=== PATIENT | female | born 1940 | race Caucasian/White ===

== ENCOUNTER 2022-07-07 10:13 | Inpatient (IN) ==
[2022-07-07] MEDS ORDERED: IOPAMIDOL 100 ML BOTTLE IV ONE (10:14)
[2022-07-07] MEDS ORDERED: LACTATED RINGERS 1,000 ML IV ONE (10:26)
[2022-07-07 10:34] LABS: POC Calcium, Ionized 1.16 (1.16-1.32); POC Creatinine 1.6 (0.6-1.2); POC Potassium 4.2 (3.3-5.1)
--- NOTE | 2022-07-07 10:43 | Emergency Department Note ---
HPI General Chief complaint: Nausea/Vomiting/Diarrhea Stated complaint: cold/flu sx Time Seen by Provider: 07/07/22 10:26 Source: patient Mode of arrival: ambulatory Limitations: no limitations History of Present Illness HPI Narrative: Narrative: Patient is an 82-year-old female with a history of hypertension and h yperlipidemia who presents to the emergency department due to nausea, vomiting, and lightheadedness. She states that the symptoms developed last night at about midnight. She states that her nausea and vomiting continued and was frequent. She also endorses frequent diarrhea. She states that this morning she began to have lightheadedness. She states that she almost lost consciousness and fell on the way to the bathroom, and at that time decided that she needed to come to the emergency department. She does endorse some chills last night. She denies any other symptoms. Related Data Home Medications Medication Instructions Recorded Confirmed multivitamin 1 tab PO QDAY 05/02/15 07/07/22 Calcium 600 mg PO BID 11/06/15 07/07/22 vitamin A-vit C-vit E-zinc-Cu 2 tab PO BID 11/07/16 07/07/22 tablet simvastatin 40 mg tablet 40 mg PO HS 07/10/21 07/07/22 amlodipine 5 mg tablet 5 mg PO DAILY 04/01/22 07/07/22 lysine 500 mg tablet (L-Lysine) 500 mg PO QDAY 07/07/22 07/07/22 hydrochlorothiazide 12.5 mg PO DAILY 07/08/22 07/08/22 valsartan 160 mg PO DAILY 07/08/22 07/08/22 Previous Rx's Medication Instructions Recorded metoprolol succinate 50 mg 50 mg PO QDAY #365 tabs 11/12/17 tablet,extended release 24 hr loperamide 2 mg capsule 2 mg PO PRN PRN Diarrhea #20 caps 07/09/22 ondansetron 4 mg disintegrating 4 mg PO Q8H PRN nausea and 07/09/22 tablet vomiting #20 tabs Allergies Allergy/AdvReac Type Severity Reaction Status Date / Time Sulfa (Sulfonamide Allergy Intermediate Hives Verified 07/07/22 15:57 Antibiotics) Review of Systems ROS ROS Narrative: Narrative: Constitutional: Reports chills; Denies fever or weakness Eyes: Denies eye pain or vision change ENT ED: Denies throat pain or rhinorrhea Cardiovascular: Denies chest pain, dyspnea on exertion, orthopnea or edema Respiratory: Denies shortness of breath or cough Gastrointestinal: Reports nausea, vomiting and diarrhea; Denies abdominal pain, constipation, hematochezia or melena Musculoskeletal: Denies back pain or myalgia Integumentary: Denies rash or lesions Neurological: Denies headache, weakness, numbness, confusion, abnormal gait or dizziness Endocrine: Denies fatigue or polyuria PFSH Narrative Patient History Narrative: Narrative: Medical/Surgical/Family History All Active Problems (Updated 07/11/22 @ 12:35 by Tha Qureshi MD) Sepsis secondary to UTI (Acute) Stage 1 acute kidney injury (Acute) Urinary tract infection (Acute) Enterocolitis (Acute) Clinical sepsis (Acute) Knee pain, left (Acute) URI (upper respiratory infection) (Acute) Encounter for Health Maintenance Examination in Adult (Acute) Osteopenia (Chronic) Migraine (Chronic) Hypertension, essential (Chronic) Hyperlipidemia (Chronic) Esophageal reflux (Chronic) Colonic benign neoplasm (Chronic) Medical History (Updated 07/11/22 @ 12:35 by Tha Qureshi MD) Colonic benign neoplasm history of colon polyps, tubular adenoma 2016 Dyspnea on exertion Encounter for removal of sutures Esophageal reflux Hematuria, unspecified microscopic hematuria, longstanding Hemorrhoids, internal Hyperlipidemia Hypertension, essential Laceration Migraine Osteopenia Osteopenia disorder of bone/cartilage, unspec. Pain in or around eye Dry eye syndrome/tear film insuffiiency/unspec Urinary tract infection Surgical History (Updated 07/06/20 @ 10:53 by [employer] [place]) History of bilateral breast biopsy 2001-Dr. Greenwood, benign History of cataract surgery (03/19/17) FEMTO-Assisted Procedure - Cataract right eye History of surgery 1970-Kidney Stones needed surgically removed Hx of basal cell carcinoma excision 2012 Hx of colonoscopy 2005 Hx of hysterectomy Hx of oophorectomy Status post Mohs surgery (04/13/13) Basal Cell carcinoma Family History Father Malignant neoplasm of stomach Brother Pituitary adenoma, Onset Age: 57 Mother Essential hypertension Grandmother Diabetes mellitus no specified side, but lived to be in her 90's Social History Smoking Status: Never smoker Alcohol Intake Frequency: holiday/special occasion only Exam Narrative Narrative: Narrative: General Limitations: no limitations General appearance: Present alert and in no apparent distress; Absent anxious, appears intoxicated or sleepy Head Head: Present atraumatic and normocephalic Eye Eye: Present EOMI; Absent scleral icterus or nystagmus ENT ENT: Present mucous membranes moist; Absent nasal congestion Neck Neck: Present full ROM; Absent tenderness Chest Chest: Present normal inspection and symmetric chest wall rise; Absent tenderness Respiratory Respiratory: Present normal lung sounds bilaterally; Absent respiratory distress or accessory muscle use Cardiovascular Cardiovascular: Present regular rate, normal rhythm and normal heart sounds Adbominal Abdominal: Present soft, tenderness, guarding and normal bowel sounds; Absent distention, rebound or rigidity Extremities Extremities: Present normal inspection and full ROM; Absent tenderness Back Back: Present normal inspection and full ROM; Absent tenderness Neurological Neurological: Present alert and oriented X3 Psychiatric Psychiatric: Present normal affect and normal mood Skin Skin: Present warm (WNL), dry and normal color Course Vital Signs Vital signs: Vital Signs Temperature 97.4 F 07/07/22 10:15 Pulse Rate 120 H 07/07/22 10:15 Respiratory Rate 20 07/07/22 10:15 Blood Pressure 82/55 07/07/22 10:15 Pulse Oximetry (%) 93 07/07/22 10:15 Oxygen Delivery Method Room Air 07/07/22 10:15 Temperature 98.5 F 07/09/22 16:20 Pulse Rate 68 07/09/22 16:20 Respiratory Rate 18 07/09/22 16:20 Blood Pressure 135/77 07/09/22 16:20 Pulse Oximetry (%) 99 07/09/22 16:20 Oxygen Delivery Method Room Air 07/09/22 16:20 [facility] Narrative Medical decision making narrative: AlsoNarrative: Patient is an 82-year-old female with a history of hypertension and hyperlipidem ia who presents to the emergency department due to nausea, vomiting, and lightheadedness. Differential diagnoses include small bowel obstruction, influenza, COVID, UTI including pyelonephritis, although she does not have flank pain or tenderness that would be consistent with this. Differential also includes pancreatitis and hepatitis. Patient has a leukocytosis of 14.4. Due to this patient does meet SIRS criteria. Blood cultures and T4 are being obtained. Patient's lactate is 2.8. Patient does have findings consistent with a urinary tract infection. She has received antibiotics. I have spoken to Dr. Law who has agreed to see and evaluate patient for admission. Lab Data 07/07/22 10:34 Labs: Lab Results 07/07/22 07/07/22 07/07/22 Range/Units 10:29 10:34 10:35 WBC 14.4 H (4.5-11.0) K/mcL RBC 4.92 (3.59-5.38) M/mcL Hgb 14.8 (11.2-15.7) g/dL Hct 45.3 H (34.1-44.9) % POC Hct 47.0 (36-48) MCV 92.1 (80.0-100.0) fL MCH 30.1 (26.0-34.0) pg MCHC 32.7 (31.0-36.0) g/dL RDW 13.1 (11.5-14.5) % Plt Count 320 (140-440) K/mcL MPV 9.7 (8.8-12.5) fL Immature Gran % (Auto) 0.3 (0.0-0.5) % Neut % (Auto) 92.0 H (38.0-78.0) % Lymph % (Auto) 3.7 L (15.5-49.0) % [place] % (Auto) 3.6 (1.0-12.0) % Eos % (Auto) 0.1 (0.0-7.0) % Baso % (Auto) 0.3 (0.0-2.0) % Lymph # (Auto) 0.54 L (1.50-4.80) K/mcL [place] # (Auto) 0.52 (0.10-0.90) K/mcL Eos # (Auto) 0.02 (0.00-0.70) K/mcL Baso # (Auto) 0.04 (0.00-0.30) K/mcL Immature Gran # 0.05 (0.00-0.05) K/mcl Absolute Neutrophils 13.25 H (1.80-8.00) K/mcL POC VBG pH (7.32-7.42) POC VBG pCO2 at Temp (41-51) POC VBG pO2 (25-40) POC VBG HCO3 (24-28) POC VBG Total CO2 (25-29) POC Venous O2 Sat (40-70) POC VBG Base Excess (-2-2) VBG Lactic Acid (0.5-2) POC Sodium 139 (133-145) POC Potassium 4.2 (3.3-5.1) POC Chloride 103 (96-108) POC Total CO2 22.0 (22-30) POC BUN 39 H (6-20) POC Creatinine 1.6 H (0.6-1.2) POC Glucose 146 H (70-105) POC WB Ioniz Calcium 1.16 (1.16-1.32) Procalcitonin 0.83 H (<0.10) ng/mL Urine Color Urine Appearance (Clear) Urine pH (5.0-9.0) Ur Specific [place] (1.000-1.035) Urine Protein (Negative) mg/dL Urine Glucose (UA) (Negative) mg/dL Urine Ketones (Negative) mg/dL Urine Occult Blood (Negative) mg/dL Urine Nitrate (Negative) Urine Bilirubin (Negative) mg/dL Urine Urobilinogen mg/dL Ur Leukocyte Esterase (Negative) /uL Urine RBC (0-3) /hpf Urine WBC (0-4) /hpf Ur Squamous Epith Cells (0-4) /hpf Urine Bacteria (0) /hpf Hyaline Casts (0-2) /lph Urine Mucus (None) /hpf Ur Culture Indicated? 07/07/22 07/07/22 07/07/22 Range/Units 11:17 12:20 13:00 WBC (4.5-11.0) K/mcL RBC (3.59-5.38) M/mcL Hgb (11.2-15.7) g/dL Hct (34.1-44.9) % POC Hct (36-48) MCV (80.0-100.0) fL MCH (26.0-34.0) pg MCHC (31.0-36.0) g/dL RDW (11.5-14.5) % Plt Count (140-440) K/mcL MPV (8.8-12.5) fL Immature Gran % (Auto) (0.0-0.5) % Neut % (Auto) (38.0-78.0) % Lymph % (Auto) (15.5-49.0) % [place] % (Auto) (1.0-12.0) % Eos % (Auto) (0.0-7.0) % Baso % (Auto) (0.0-2.0) % Lymph # (Auto) (1.50-4.80) K/mcL [place] # (Auto) (0.10-0.90) K/mcL Eos # (Auto) (0.00-0.70) K/mcL Baso # (Auto) (0.00-0.30) K/mcL Immature Gran # (0.00-0.05) K/mcl Absolute Neutrophils (1.80-8.00) K/mcL POC VBG pH 7.45 H 7.35 (7.32-7.42) POC VBG pCO2 at Temp 27.6 L 41.3 (41-51) POC VBG pO2 26 19 L (25-40) POC VBG HCO3 19.1 L 22.7 L (24-28) POC VBG Total CO2 20.0 L 24.0 L (25-29) POC Venous O2 Sat 52.0 27.0 L (40-70) POC VBG Base Excess -5.0 L -3.0 L (-2-2) VBG Lactic Acid 2.8 H 1.2 (0.5-2) POC Sodium (133-145) POC Potassium (3.3-5.1) POC Chloride (96-108) POC Total CO2 (22-30) POC BUN (6-20) POC Creatinine (0.6-1.2) POC Glucose (70-105) POC WB Ioniz Calcium (1.16-1.32) Procalcitonin (<0.10) ng/mL Urine Color Yellow Urine Appearance Cloudy A (Clear) Urine pH 5.0 (5.0-9.0) Ur Specific [place] 1.015 (1.000-1.035) Urine Protein 30 A (Negative) mg/dL Urine Glucose (UA) Negative (Negative) mg/dL Urine Ketones Negative (Negative) mg/dL Urine Occult Blood Negative (Negative) mg/dL Urine Nitrate Negative (Negative) Urine Bilirubin Negative (Negative) mg/dL Urine Urobilinogen Negative mg/dL Ur Leukocyte Esterase 500 A (Negative) /uL Urine RBC 10 H (0-3) /hpf Urine WBC 20 H (0-4) /hpf Ur Squamous Epith Cells 14 H (0-4) /hpf Urine Bacteria Many A (0) /hpf Hyaline Casts 21 H (0-2) /lph Urine Mucus Many A (None) /hpf Ur Culture Indicated? No ED POC Tests ED POC Tests: JONH - Influenza A Negative JONH - Influenza B Negative JONH - SARS Antigen Negative Discharge Plan Patient/Caregiver Discharge Instructions Pt seen by SOCIAL MEDIA SPECIALIST/PA only: No Clinical Impression: Sepsis secondary to UTI Activity: increase activity as tolerated Patient Disposition: Xfer As Inpt ([facility]) Condition: Good Discharge Date/Time: 07/07/22 15:35 Discharge Location: [facility]
[2022-07-07 11:01] LABS: Basophils # (Auto) 0.04 K/mcL (0.00-0.30); Basophils % (Auto) 0.3 % (0.0-2.0); Eosinophils # (Auto) 0.02 K/mcL (0.00-0.70); Eosinophils % (Auto) 0.1 % (0.0-7.0); Hematocrit 45.3 % (34.1-44.9); Hemoglobin 14.8 g/dL (11.2-15.7); Lymphocytes # (Auto) 0.54 K/mcL (1.50-4.80); Lymphocytes % (Auto) 3.7 % (15.5-49.0); Mean Cell Volume 92.1 fL (80.0-100.0); Mean Corpuscular HGB Conc 32.7 g/dL (31.0-36.0); Mean Platelet Volume 9.7 fL (8.8-12.5); Monocytes # (Auto) 0.52 K/mcL (0.10-0.90); Monocytes % (Auto) 3.6 % (1.0-12.0); Platelet Count 320 K/mcL (140-440); RBC 4.92 M/mcL (3.59-5.38); Red Cell Distribution Width 13.1 % (11.5-14.5); WBC 14.4 K/mcL (4.5-11.0)
[2022-07-07] MEDS ORDERED: cefTRIAXone 1 GM VIAL IV ONE (11:30)
[2022-07-07] MEDS ORDERED: 0.9 % SODIUM CHLORIDE 1,000 ML IV ONE (11:36)
[2022-07-07 13:47] LABS: Appearance,Urine CLOUDY (Clear); Bacteria,Urine MANY /hpf (0); Bilirubin,Urine Negative (Negative); Color,Urine Yellow; Culture Indicated,Urine No; Glucose,Urine (UA) Negative (Negative); Ketones,Urine Negative (Negative); Leukocyte Esterase,Urine 500 /uL (Negative); Mucus,Urine MANY /hpf; Nitrate,Urine Negative (Negative); Protein,Urine 30 mg/dL (Negative); Specific Gravity,Urine 1.015 (1.000-1.035); Urine Blood Negative (Negative); Urine Hyaline Cast 21 /lph (0-2); Urine RBC 10 /hpf (0-3); Urine Squamous Epithelial Cell 14 /hpf (0-4); Urine WBC 20 /hpf (0-4); Urobilinogen,Urine Negative
--- NOTE | 2022-07-07 15:25 | Internal Med History&Physical ---
HPI History of Present Illness Patient information: Note initiated : 07/07/22 at 3:13 pm Service Date, if different from initiated Date: [] Patient: Radha Iverson a 82 y/o F admitted on for cold/flu sx. Chief Complaint: [nausea, vomiting, diarrhea] Chief complaint: nausea, vomiting, diarrhea History of present illness: Ms. Iverson is a 82 year old F history of essential hypertension, hyperlipidemia, presenting with 1 day history of cute onset nausea, vomiting, and diarrhea. There is no prior similar episode. Patient denies introduction of new food, sick contact, or recent travel. Her who eats the same food as her is fine no symptoms. Around midnight last night, she woke up from sleep with acute onset nausea, vomiting, and diarrhea. She would also have the mild abdominal cramps. She would also have chills. She would also feel general body weakness. She was not able to tolerate any food or drink since then. Patient stated that right now seems like her vomiting and diarrhea have stopped it. She denies any urinary symptoms such as dysuria or change in urinary frequency or urgency. Vital signs significant for mild tachypnea with rate of breathing in the mid to low 20s. Labs significant for leukocytosis with WBC 14.4. Serum lactic acid 2.8 with repeat 1.2. Procalcitonin level 0.83. Urine analysis suggesting the presence of urinary tract infections. Admission request is called for clinical sepsis with either urinary tract infections or gastroenteritis or both. Constitutional Constitutional: Present chills and weakness; Absent excessive sweating, fatigue or fever(s) EENT Eyes: Absent blurry vision, change in vision, loss of vision or other visual disturbances Ears: Absent decreased hearing or tinnitus Nose, mouth and throat: Absent abnormal hearing, dry mouth, headache(s), nasal congestion or sore throat Cardiovascular Cardiovascular: Absent chest pain, chest pain at rest, edema, irregular heart rhythm or palpatations Respiratory Respiratory: Absent cough, dyspnea or wheezing Gastrointestinal Gastrointestinal: Present abdominal pain, diarrhea, nausea and vomiting; Absent constipation Musculoskeletal Musculoskeletal: Absent back pain, deformity, limited range of motion, muscle cramps, muscle weakness or numbness Integumentary Integumentary: Absent lesions, rash or wounds Neurological Neurological: Absent focal weakness, headache(s) or numbness Psychiatric Psychiatric: Absent anxiety, depression or hallucinations PFSH PFSH All Active Problems (Updated 07/07/22 @ 15:20 by Liam Law MD) Stage 1 acute kidney injury (Acute) Urinary tract infection (Acute) Enterocolitis (Acute) Clinical sepsis (Acute) Knee pain, left (Acute) URI (upper respiratory infection) (Acute) Encounter for Health Maintenance Examination in Adult (Acute) Osteopenia (Chronic) Migraine (Chronic) Hypertension, essential (Chronic) Hyperlipidemia (Chronic) Esophageal reflux (Chronic) Colonic benign neoplasm (Chronic) Medical History (Updated 07/07/22 @ 15:20 by Liam Law MD) Colonic benign neoplasm history of colon polyps, tubular adenoma 2015 Dyspnea on exertion Encounter for removal of sutures Esophageal reflux Hematuria, unspecified microscopic hematuria, longstanding Hemorrhoids, internal Hyperlipidemia Hypertension, essential Laceration Migraine Osteopenia Osteopenia disorder of bone/cartilage, unspec. Pain in or around eye Dry eye syndrome/tear film insuffiiency/unspec Urinary tract infection Surgical History (Updated 07/06/20 @ 10:53 by [employer] [place]) History of bilateral breast biopsy 2001-Dr. Greenwood, benign History of cataract surgery (03/19/17) FEMTO-Assisted Procedure - Cataract right eye History of surgery 1969-Kidney Stones needed surgically removed Hx of basal cell carcinoma excision 2012 Hx of colonoscopy 2005 Hx of hysterectomy Hx of oophorectomy Status post Mohs surgery (04/13/13) Basal Cell carcinoma Family History Father Malignant neoplasm of stomach Brother Pituitary adenoma, Onset Age: 57 Mother Essential hypertension Grandmother Diabetes mellitus no specified side, but lived to be in her 90's Social History (Updated 11/12/17 @ 09:33 by Sebastian Salguero MD) smoking status: Never smoker alcohol intake frequency: holiday/special occasion only MEDS/ALLERGIES Home Medications and Allergies Home Medications Medication Instructions Recorded Confirmed Type multivitamin 1 tab PO QDAY 05/02/15 04/01/22 History Calcium 600 mg PO BID 11/06/15 04/01/22 History vitamin A-vit C-vit E-zinc-Cu 2 tab PO BID 11/07/16 04/01/22 History tablet metoprolol succinate 50 mg 50 mg PO QDAY #365 tabs 11/12/17 04/01/22 Rx tablet,extended release 24 hr simvastatin 40 mg tablet 40 mg PO HS 07/10/21 07/10/21 History amlodipine 5 mg tablet 5 mg PO BID 04/01/22 04/01/22 History Allergies Allergy/AdvReac Type Severity Reaction Status Date / Time Sulfa (Sulfonamide Allergy Intermediate Hives Verified 07/07/22 10:18 Antibiotics) EXAM Constitutional Vitals: Temp Pulse Resp BP Pulse Ox O2 Del Method 36.3 C 93 H 21 122/58 100 Room Air 07/07/22 10:15 07/07/22 14:46 07/07/22 14:46 07/07/22 14:46 07/07/22 14:46 07/07/22 10:15 General appearance: cooperative and no acute distress Head Head exam: Present atraumatic and normocephalic Eye Eye exam: Present EOMI and PERRL ENT ENT exam: Present mucous membranes moist, normal exam and normal external ear exam Neck Neck exam: Present normal inspection; Absent lymphadenopathy, tenderness or thyromegaly Respiratory Respiratory exam: Absent accessory muscle use, respiratory distress or wheezes Cardiovascular Cardiovascular exam: Present normal rate and rhythm; Absent JVD GI/Abdominal GI/Abdominal exam: Present normal bowel sounds and soft; Absent organomegaly or tenderness Extremities Exam Extremities exam: Present full ROM, normal capillary refill and normal inspection; Absent tenderness Neurological Exam Neurological exam: Present alert, CN II-XII intact and oriented X3; Absent motor sensory deficit Psychiatric Psychiatric exam: Present normal affect and normal mood; Absent anxious or depressed Skin Skin exam: Present dry and intact DATA Data Completed and Pending Labs: Labs from last 24 hours 07/07/22 07/07/22 07/07/22 13:00 12:20 11:17 WBC RBC Hgb Hct POC Hct MCV MCH MCHC RDW Plt Count MPV Immature Gran % (Auto) Neut % (Auto) Lymph % (Auto) [place] % (Auto) Eos % (Auto) Baso % (Auto) Lymph # (Auto) [place] # (Auto) Eos # (Auto) Baso # (Auto) Immature Gran # Absolute Neutrophils POC VBG pH 7.35 7.45 H POC VBG pCO2 at Temp 41.3 27.6 L POC VBG pO2 19 L 26 POC VBG HCO3 22.7 L 19.1 L POC VBG Total CO2 24.0 L 20.0 L POC Venous O2 Sat 27.0 L 52.0 POC VBG Base Excess -3.0 L -5.0 L VBG Lactic Acid 1.2 2.8 H POC Sodium POC Potassium POC Chloride POC Total CO2 POC BUN POC Creatinine POC Glucose POC WB Ioniz Calcium Procalcitonin Urine Color Yellow Urine Appearance Cloudy A Urine pH 5.0 Ur Specific [place] 1.015 Urine Protein 30 A Urine Glucose (UA) Negative Urine Ketones Negative Urine Occult Blood Negative Urine Nitrate Negative Urine Bilirubin Negative Urine Urobilinogen Negative Ur Leukocyte Esterase 500 A Urine RBC 10 H Urine WBC 20 H Ur Squamous Epith Cells 14 H Urine Bacteria Many A Hyaline Casts 21 H Urine Mucus Many A Ur Culture Indicated? No 07/07/22 07/07/22 07/07/22 10:35 10:34 10:29 WBC 14.4 H RBC 4.92 Hgb 14.8 Hct 45.3 H POC Hct 47.0 MCV 92.1 MCH 30.1 MCHC 32.7 RDW 13.1 Plt Count 320 MPV 9.7 Immature Gran % (Auto) 0.3 Neut % (Auto) 92.0 H Lymph % (Auto) 3.7 L [place] % (Auto) 3.6 Eos % (Auto) 0.1 Baso % (Auto) 0.3 Lymph # (Auto) 0.54 L [place] # (Auto) 0.52 Eos # (Auto) 0.02 Baso # (Auto) 0.04 Immature Gran # 0.05 Absolute Neutrophils 13.25 H POC VBG pH POC VBG pCO2 at Temp POC VBG pO2 POC VBG HCO3 POC VBG Total CO2 POC Venous O2 Sat POC VBG Base Excess VBG Lactic Acid POC Sodium 139 POC Potassium 4.2 POC Chloride 103 POC Total CO2 22.0 POC BUN 39 H POC Creatinine 1.6 H POC Glucose 146 H POC WB Ioniz Calcium 1.16 Procalcitonin 0.83 H Urine Color Urine Appearance Urine pH Ur Specific [place] Urine Protein Urine Glucose (UA) Urine Ketones Urine Occult Blood Urine Nitrate Urine Bilirubin Urine Urobilinogen Ur Leukocyte Esterase Urine RBC Urine WBC Ur Squamous Epith Cells Urine Bacteria Hyaline Casts Urine Mucus Ur Culture Indicated? A/P Assessment and plan (1) Clinical sepsis: Status: Acute (2) Enterocolitis: Status: Acute (3) Urinary tract infection: Status: Acute (4) Hypertension, essential: Status: Chronic (5) Hyperlipidemia: Status: Chronic (6) Stage 1 acute kidney injury: Status: Acute Narrative A/P Narrative: Assessment and Plans: 1. Clinical sepsis: DDx: UTI, enterocolitis Inpatient med surg Serial lactic acid Procalcitonin level Blood culture Urine culture cbc w/ auto diff in the morning to trend WBC s/p 2L fluid bolus given in the ED, to be followed by another Liter NS bolus Then NS@100cc/hr Rocephin Zofran C diff toxin PCR to rule out C diff colitis; when negative will offer Imodium PRN loose stool CT abdomen pelvis w/ contrast Clear liquid diet, advance as tolerated 2. Stage 1 acute kidney injury: Likely 2/2 dehydration from UTI/enterocolitis Avoid nephrotoxic agents s/p 2L fluid bolus given in the ED, to be followed by another Liter NS bolus Then NS@100cc/hr CMP in the morning to trend kidney functions 3. Essential HTN: Hold Amlodipine Continue Metoprolol ER 4. Hyperlipidemia: Continue statin therapy GI ppx: not currently indicated DVT ppx: Heparin Code status: Full Prognosis: guarded Disposition: inpatient med surg Time Spent With Patient Time: Total time spent is greater than 50% in coordination of care (as documented) at patient's floor/unit and/or counseling patient: Initial: Total time with patient: 55 - 74 minutes
--- NOTE | 2022-07-07 15:43 | Cat Scan Report ---
CLINICAL INFORMATION: Abdominal pain COMPARISON: None. TECHNIQUE: Following enteric contrast, 80 cc of Isovue-370 were injected intravenously, and 60 seconds later, 0.625 mm helical slices were obtained from the mid heart through the subtrochanteric regions. Following reconstruction, 2.5 mm sagittal, coronal and axial reformatted images were processed and reviewed at bone, lung and soft tissue windows. Five minutes later, 0.625 mm helical slices were obtained from the mid heart through the kidneys and viewed at soft tissue windows.The exam was performed using radiation dose optimization techniques including, but not limited to, automated exposure control, adjustment of the mA and/or kV according to patient size and use of iterative reconstruction technique. FINDINGS: The lung bases are clear. No effusions. The visualized heart is grossly normal. Abdominal images show the gallbladder and bile ducts, liver, both kidneys, adrenal glands, spleen, pancreas and aorta, including aortic branches, are normal in size, configuration and attenuation without focal lesion. There is no free air, free fluid or adenopathy. Pelvic images show normal urinary bladder. Hysterectomy oophorectomy changes noted.. The stomach, small bowel, appendix region and large bowel are grossly normal. Bone windows show no osseous abnormality IMPRESSION: normal exam Interpreted and Authenticated by: Reinaldo Hodge 07/07/22
[2022-07-07] MEDS ORDERED: morphine 4 MG/ML VIAL IV PRN (15:50)
[2022-07-07] MEDS ORDERED: ONDANSETRON 4 MG/2 ML VIAL IV PRN (15:50)
[2022-07-07] MEDS ORDERED: oxyCODONE HCL 5 MG TABLET PO PRN (15:50)
[2022-07-07] MEDS ORDERED: IPRATROPIUM/ALBUTEROL 3 ML AMPUL.NEB NEB PRN (15:50)
[2022-07-07] MEDS ORDERED: cefTRIAXone 1 GM in DEXTROSE 5% IN WATER 50 ML IV SCH (15:50)
[2022-07-07] MEDS: ACETAMINOPHEN 325 MG TABLET PO PRN (16:12)
[2022-07-07] MEDS: COLD 0.9 % SODIUM CHLORIDE 1,000 ML IV SCH ×2 (16:15→16:30)
[2022-07-07] MEDS: 0.9 % SODIUM CHLORIDE 1,000 ML IV SCH (17:39)
[2022-07-07] MEDS: CALCIUM (OYSTER SHELL) 500 MG TABLET PO SCH (20:23)
[2022-07-07] MEDS: SIMVASTATIN 40 MG TABLET PO SCH (20:23)
[2022-07-07] MEDS: HEPARIN 5,000 UNIT/ML VIAL SQ SCH (20:24)
[2022-07-07] MEDS: traZODone HCL 50 MG TABLET PO PRN (20:25)
[2022-07-07] MEDS: DOCUSATE SODIUM 100 MG CAPSULE PO SCH (20:49)
[2022-07-07] MEDS: SENNOSIDES 1 TABLET PO SCH (20:49)
[2022-07-07] MEDS ORDERED: [UNRECOGNIZED DRUG - OTHER] PO SCH (21:00)
[2022-07-07] MEDS: 0.9 % SODIUM CHLORIDE 10 ML SYRINGE IV SCH (23:06)
[2022-07-08] MEDS: ACETAMINOPHEN 325 MG TABLET PO PRN (00:33)
[2022-07-08] MEDS: 0.9 % SODIUM CHLORIDE 1,000 ML IV SCH ×2 (03:46→13:55)
[2022-07-08] MEDS: 0.9 % SODIUM CHLORIDE 10 ML SYRINGE IV SCH ×3 (05:28→20:00)
[2022-07-08 08:24] LABS: Basophils # (Auto) 0.02 K/mcL (0.00-0.30); Basophils % (Auto) 0.3 % (0.0-2.0); Eosinophils # (Auto) 0.06 K/mcL (0.00-0.70); Hematocrit 36.8 % (34.1-44.9); Hemoglobin 11.1 g/dL (11.2-15.7); Lymphocytes # (Auto) 0.87 K/mcL (1.50-4.80); Lymphocytes % (Auto) 14.2 % (15.5-49.0); Mean Corpuscular HGB Conc 30.2 g/dL (31.0-36.0); Mean Platelet Volume 9.6 fL (8.8-12.5); Monocytes # (Auto) 0.41 K/mcL (0.10-0.90); Monocytes % (Auto) 6.7 % (1.0-12.0); Neutrophils % (Auto) 77.5 % (38.0-78.0); Platelet Count 185 K/mcL (140-440); RBC 3.68 M/mcL (3.59-5.38); Red Cell Distribution Width 13.6 % (11.5-14.5); WBC 6.1 K/mcL (4.5-11.0)
[2022-07-08 08:48] LABS: ALT/SGPT 16 U/L (<40); AST/SGOT 29 U/L (<32); Albumin 3.2 gm/dL (3.2-5.2); Albumin/Globulin Ratio 1.5 (1.0-2.3); Alkaline Phosphatase 61 U/L (39-117); Bilirubin,Total 0.3 mg/dL (0.1-1.0); Blood Urea Nitrogen 17 mg/dL (8-23); Calcium 7.9 mg/dL (8.6-10.4); Carbon Dioxide 17 mmol/L (22-30); Chloride 112 mmol/L (96-108); Globulin 2.2 gm/dL (2.2-3.7); Glomerular Filtration Rate 86; Glucose 89 mg/dL (70-105)
[2022-07-08] MEDS ORDERED: LYSINE 500 MG PO SCH (09:00)
[2022-07-08] MEDS: HEPARIN 5,000 UNIT/ML VIAL SQ SCH (09:05)
[2022-07-08] MEDS: CALCIUM (OYSTER SHELL) 500 MG TABLET PO SCH ×2 (09:05→21:09)
[2022-07-08] MEDS: METOPROLOL SUCCINATE 50 MG TAB.XL.24H PO SCH (09:06)
[2022-07-08] MEDS: DOCUSATE SODIUM 100 MG CAPSULE PO SCH ×2 (09:07→20:00)
[2022-07-08] MEDS: MULTIVIT,THER IRON,CA,FA & MIN 1 TABLET PO SCH (09:08)
[2022-07-08] MEDS: cefTRIAXone 1 GM VIAL IV SCH (09:15)
[2022-07-08] MEDS ORDERED: LOPERAMIDE 2 MG CAPSULE PO PRN (11:23)
--- NOTE | 2022-07-08 11:23 | Internal Med Progress Note ---
SUBJECTIVE Subjective Patient information: Note initiated : 07/08/22 at 11:22 am Service Date, if different from initiated Date: [] Patient: Radha Iverson 82 y/o F admitted on 07/07/22 for cold/flu sx. Chief Complaint: [] Interval history: Ms. Iverson is a 82 year old F history of essential hypertension, hyperlipidemia, presenting with 1 day history of cute onset nausea, vomiting, and diarrhea. There is no prior similar episode. Patient denies introduction of new food, sick contact, or recent travel. Her who eats the same food as her is fine no symptoms. Around midnight last night, she woke up from sleep with acute onset nausea, vomiting, and diarrhea. She would also have the mild abdominal cramps. She would also have chills. She would also feel general body weakness. She was not able to tolerate any food or drink since then. Patient stated that right now seems like her vomiting and diarrhea have stopped it. She denies any urinary symptoms such as dysuria or change in urinary frequency or urgency. Vital signs significant for mild tachypnea with rate of breathing in the mid to low 20s. Labs significant for leukocytosis with WBC 14.4. Serum lactic acid 2.8 with repeat 1.2. Procalcitonin level 0.83. Urine analysis suggesting the presence of urinary tract infections. Admission request is called for clinical sepsis with either urinary tract infections or gastroenteritis or both. 07/08: CT of the abdomen pelvis no sign of gastroenteritis. C. difficile PCR negative. Blood and urine culture no growth today. Serum Cr level 1.6-->0.6. Patient denies any more nausea or vomiting. She tolerates regular food fine. She is still having diarrhea but is starting to solidify it. Continue IV fluid and Rocephin for urinary tract infections. Imodium as needed loose stool. We will keep the patient in-house today. Constitutional Vitals: Vital Signs Temp Pulse Resp BP Pulse Ox O2 Del Method 37.0 C 80 16 155/80 97 Room Air 07/08/22 11:21 07/08/22 11:21 07/08/22 11:21 07/08/22 11:21 07/08/22 11:21 07/08/22 11:21 Period Temp Pulse Resp BP Sys/[place] Pulse Ox O2 Del Method O2 Flow Rate Last 24 Hr 36.6 C-37.5 C 80-95 16-26 120-160/48-80 97-100 Room Air-Room Air Intake and Output 07/07/22 07/08/22 07/08/22 19:59 03:59 11:59 Intake Total 3480 360 Output Total 600 400 300 Balance 2880 -40 -300 Weight 68.492 kg Intake & Output: Intake & Output 07/07/22 07/08/22 07/08/22 19:59 03:59 11:59 Intake Total 3480 360 Output Total 600 400 300 Balance 2880 -40 -300 Weight 68.492 kg Intake: IV 3000 Sodium Chloride 0.9% 1,000 ml @ 2000 100 mls/hr IV .Q10H NEO Rx#: [id number] Cold Sodium Chloride 0.9% 1,000 1000 ml @ Wide Open IV ONCE NEO Rx# :[id number] Oral 480 360 Output: Void Amount 500 400 Urine/Stool Mix 300 Stool 100 Other: Meal Snack Breakfast Percent of Meal Consumed 100 75% Feeding Ability Independent Independent Urine Appearance Clear Clear Urine Color Pale Pale Urine Odor Normal Stool Size Smear Stool Consistency Loose # Bowel Movements 1 1 Head Head exam: Present atraumatic and normal inspection Eye Eye exam: Present normal appearance ENT ENT exam: Present mucous membranes moist, normal exam and normal external ear exam Neck Neck exam: Present normal inspection Respiratory Respiratory exam: Present normal respiratory exam Cardiovascular Cardiovascular exam: Present normal rate and rhythm GI/Abdominal GI/Abdominal exam: Present normal bowel sounds Back Exam Back exam: Present normal inspection Neurological Exam Neurological exam: Present alert and oriented X3 Skin Skin exam: Present intact and warm OBJ DATA Labs 07/08/22 05:20 07/08/22 05:20 Labs: Abnormal Lab Results 07/08/22 07/08/22 07/07/22 05:20 05:20 13:00 WBC Hgb 11.1 L Hct MCHC 30.2 L Neut % (Auto) Lymph % (Auto) 14.2 L Lymph # (Auto) 0.87 L Absolute Neutrophils POC VBG pH POC VBG pCO2 at Temp POC VBG pO2 19 L POC VBG HCO3 22.7 L POC VBG Total CO2 24.0 L POC Venous O2 Sat 27.0 L POC VBG Base Excess -3.0 L VBG Lactic Acid Chloride 112 H Carbon Dioxide 17 L POC BUN POC Creatinine POC Glucose Calcium 7.9 L Total Protein 5.4 L Procalcitonin Urine Appearance Urine Protein Ur Leukocyte Esterase Urine RBC Urine WBC Ur Squamous Epith Cells Urine Bacteria Hyaline Casts Urine Mucus 07/07/22 07/07/22 07/07/22 12:20 11:17 10:35 WBC Hgb Hct MCHC Neut % (Auto) Lymph % (Auto) Lymph # (Auto) Absolute Neutrophils POC VBG pH 7.45 H POC VBG pCO2 at Temp 27.6 L POC VBG pO2 POC VBG HCO3 19.1 L POC VBG Total CO2 20.0 L POC Venous O2 Sat POC VBG Base Excess -5.0 L VBG Lactic Acid 2.8 H Chloride Carbon Dioxide POC BUN POC Creatinine POC Glucose Calcium Total Protein Procalcitonin 0.83 H Urine Appearance Cloudy A Urine Protein 30 A Ur Leukocyte Esterase 500 A Urine RBC 10 H Urine WBC 20 H Ur Squamous Epith Cells 14 H Urine Bacteria Many A Hyaline Casts 21 H Urine Mucus Many A 07/07/22 07/07/22 10:34 10:29 WBC 14.4 H Hgb Hct 45.3 H MCHC Neut % (Auto) 92.0 H Lymph % (Auto) 3.7 L Lymph # (Auto) 0.54 L Absolute Neutrophils 13.25 H POC VBG pH POC VBG pCO2 at Temp POC VBG pO2 POC VBG HCO3 POC VBG Total CO2 POC Venous O2 Sat POC VBG Base Excess VBG Lactic Acid Chloride Carbon Dioxide POC BUN 39 H POC Creatinine 1.6 H POC Glucose 146 H Calcium Total Protein Procalcitonin Urine Appearance Urine Protein Ur Leukocyte Esterase Urine RBC Urine WBC Ur Squamous Epith Cells Urine Bacteria Hyaline Casts Urine Mucus Meds: Medications Acetaminophen (Acetaminophen 325 Mg Tablet) 650 mg PO Q6HP PRN; Protocol PRN Reason: Per Pain Protocol/Fever > 101 Last Admin: 07/08/22 00:33 Dose: 650 mg Albuterol/Ipratropium (Ipratropium/Albuterol 3 Ml Ampul.Neb) 3 ml NEB Q4HRT PRN PRN Reason: Wheezing Calcium Carbonate/Glycine (Calcium (Oyster Shell) 500 Mg Tablet) 500 mg PO BID [facility] Last Admin: 07/08/22 09:05 Dose: 500 mg Ceftriaxone Sodium (Ceftriaxone 1 Gm Vial) 1 gm IV Q24H NEO Last Admin: 07/08/22 09:15 Dose: 1 gm Docusate Sodium (Docusate Sodium 100 Mg Capsule) 100 mg PO BID [facility] Last Admin: 07/08/22 09:07 Dose: Not Given Heparin Sodium (Porcine) (Heparin 5,000 Unit/Ml Vial) 5,000 unit SQ Q12 [facility] Last Admin: 07/08/22 09:05 Dose: 5,000 unit Sodium Chloride (Cold Sodium Chloride 0.9%) 1,000 mls @ 0 mls/hr IV ONCE [facility] Last Infusion: 07/07/22 17:40 Dose: Infused Sodium Chloride (Sodium Chloride 0.9%) 1,000 mls @ 100 mls/hr IV .Q10H [facility] Last Admin: 07/08/22 03:46 Dose: 100 mls/hr Iron Carb/Multivit/[place]/Folic Acid (Multivit,Ther Iron,Ca,Fa & Min 1 Tablet) 1 tab PO DAILY [facility] Last Admin: 07/08/22 09:08 Dose: 1 tab Metoprolol Succinate (Metoprolol Succinate 50 Mg Tab.Xl.24h) 50 mg PO QDAY [facility] Last Admin: 07/08/22 09:06 Dose: 50 mg Morphine Sulfate (Morphine 4 Mg/Ml Vial) 4 mg IV Q4HP PRN; Protocol PRN Reason: Per Pain Protocol Ondansetron HCl (Ondansetron 4 Mg/2 Ml Vial) 4 mg IV Q6HP PRN PRN Reason: Nausea And Vomiting Oxycodone HCl (Oxycodone Hcl 5 Mg Tablet) 5 mg PO Q4HP PRN; Protocol PRN Reason: Per Pain Protocol Senna (Sennosides 1 Tablet) 2 tab PO HS [facility] Last Admin: 07/07/22 20:49 Dose: Not Given Simvastatin (Simvastatin 40 Mg Tablet) 40 mg PO HS [facility] Last Admin: 07/07/22 20:23 Dose: 40 mg Sodium Chloride (0.9 % Sodium Chloride 10 Ml Syringe) 10 ml IV Q8 [facility] Last Admin: 07/08/22 05:28 Dose: Not Given Trazodone HCl (Trazodone Hcl 50 Mg Tablet) 25 mg PO HSP PRN PRN Reason: Insomnia Last Admin: 07/07/22 20:25 Dose: 25 mg A/P Assessment and plan (1) Clinical sepsis: Status: Acute (2) Enterocolitis: Status: Acute (3) Urinary tract infection: Status: Acute (4) Hypertension, essential: Status: Chronic (5) Hyperlipidemia: Status: Chronic (6) Stage 1 acute kidney injury: Status: Acute Narrative A/P Narrative: Assessment and Plans: 1. Clinical sepsis: DDx: UTI, enterocolitis Inpatient med surg Serial lactic acid 2.8-->1.2 Procalcitonin level 0.83 Blood culture, no growth to date Urine culture, no growth to date cbc w/ auto diff in the morning to trend WBC s/p 2L fluid bolus given in the ED, to be followed by another Liter NS bolus Then NS@100cc/hr Rocephin Zofran C diff toxin PCR--> negative; will offer Imodium PRN loose stool CT abdomen pelvis w/ contrast no signs of enterocolitis Clear liquid diet, advance as tolerated, now on regular diet 2. Stage 1 acute kidney injury: Likely 2/2 dehydration from UTI/enterocolitis Avoid nephrotoxic agents s/p 2L fluid bolus given in the ED, to be followed by another Liter NS bolus Then NS@100cc/hr CMP in the morning to trend kidney functions 3. Essential HTN: Continue Amlodipine Continue Metoprolol ER Resume HCTZ Valsartan 4. Hyperlipidemia: Continue statin therapy GI ppx: not currently indicated DVT ppx: Lovenox Code status: Full Prognosis: guarded Disposition: inpatient med surg Time Spent With Patient Time: Total time spent is greater than 50% in coordination of care (as documented) at patient's floor/unit and/or counseling patient: Subsequent: Total time with patient: 35 - 49 minutes QUALITY VTE Deep Vein Thrombosis/Pulmonary Embolism Present on Admission: No
[2022-07-08] MEDS: COLD 0.9 % SODIUM CHLORIDE 1,000 ML IV SCH (15:01)
[2022-07-08] MEDS: SENNOSIDES 1 TABLET PO SCH (20:01)
[2022-07-08] MEDS: traZODone HCL 50 MG TABLET PO PRN (21:09)
[2022-07-08] MEDS: SIMVASTATIN 40 MG TABLET PO SCH (21:09)
[2022-07-09] MEDS: 0.9 % SODIUM CHLORIDE 1,000 ML IV SCH ×2 (00:16→12:24)
[2022-07-09] MEDS: 0.9 % SODIUM CHLORIDE 10 ML SYRINGE IV SCH ×2 (04:01→14:32)
[2022-07-09 07:19] LABS: Basophils # (Auto) 0.02 K/mcL (0.00-0.30); Basophils % (Auto) 0.3 % (0.0-2.0); Eosinophils # (Auto) 0.05 K/mcL (0.00-0.70); Eosinophils % (Auto) 0.7 % (0.0-7.0); Hematocrit 36.2 % (34.1-44.9); Hemoglobin 11.6 g/dL (11.2-15.7); Lymphocytes # (Auto) 1.56 K/mcL (1.50-4.80); Lymphocytes % (Auto) 23.4 % (15.5-49.0); Mean Cell Volume 92.8 fL (80.0-100.0); Mean Platelet Volume 9.6 fL (8.8-12.5); Monocytes # (Auto) 0.66 K/mcL (0.10-0.90); Monocytes % (Auto) 9.9 % (1.0-12.0); Neutrophils % (Auto) 65.4 % (38.0-78.0); Platelet Count 210 K/mcL (140-440); Red Cell Distribution Width 13.2 % (11.5-14.5); WBC 6.7 K/mcL (4.5-11.0)
[2022-07-09 07:56] LABS: ALT/SGPT 18 U/L (<40); AST/SGOT 40 U/L (<32); Albumin 3.3 gm/dL (3.2-5.2); Albumin/Globulin Ratio 1.4 (1.0-2.3); Alkaline Phosphatase 69 U/L (39-117); Bilirubin,Total 0.2 mg/dL (0.1-1.0); Blood Urea Nitrogen 9 mg/dL (8-23); Calcium 8.6 mg/dL (8.6-10.4); Carbon Dioxide 24 mmol/L (22-30); Chloride 106 mmol/L (96-108); Globulin 2.3 gm/dL (2.2-3.7); Glomerular Filtration Rate 86; Glucose 82 mg/dL (70-105)
[2022-07-09] MEDS: CALCIUM (OYSTER SHELL) 500 MG TABLET PO SCH (08:13)
[2022-07-09] MEDS: MULTIVIT,THER IRON,CA,FA & MIN 1 TABLET PO SCH (08:13)
[2022-07-09] MEDS: DOCUSATE SODIUM 100 MG CAPSULE PO SCH (08:15)
[2022-07-09] MEDS: METOPROLOL SUCCINATE 50 MG TAB.XL.24H PO SCH (08:15)
[2022-07-09] MEDS: cefTRIAXone 1 GM VIAL IV SCH (08:48)
[2022-07-09] MEDS ORDERED: HYDROCHLOROTHIAZIDE 12.5 MG CAPSULE PO SCH (09:00)
[2022-07-09] MEDS ORDERED: amLODIPine 5 MG TABLET PO SCH (09:00)
[2022-07-09] MEDS ORDERED: ENOXAPARIN 40 MG/0.4 ML SYRINGE SQ SCH (09:00)
[2022-07-09] MEDS ORDERED: LOSARTAN 50 MG TABLET PO SCH (09:00)
--- NOTE | 2022-07-09 12:09 | Discharge Summary ---
Discharge Provider Provider IMPORTANT FOLLOW-UP INFORMATION FOR PCP: Patient information: Note initiated : 07/09/22 at 12:06 pm Service Date, if different from initiated Date: [] Patient: Radha Iverson 82 y/o F admitted on 07/07/22 for cold/flu sx. Chief Complaint: [] Date of admission: 07/07/22 15:35 Discharge date: 07/09/22 Primary care physician: Sebastian Salguero Attending physician on admission: Liam Law Consults: 07/07/22 Consult to Physician [CONS] Stat Comment: Consulting Provider: Liam Law Reason For Exam: Physician to Consult Attending physician on discharge: Liam Law COURSE Hospital Course Hospital course: Ms. Iverson is a 82 year old F history of essential hypertension, hyperlipidemia, presenting with 1 day history of cute onset nausea, vomiting, and diarrhea. There is no prior similar episode. Patient denies introduction of new food, sick contact, or recent travel. Her who eats the same food as her is fine no symptoms. Around midnight last night, she woke up from sleep with acute onset nausea, vomiting, and diarrhea. She would also have the mild abdominal cramps. She would also have chills. She would also feel general body weakness. She was not able to tolerate any food or drink since then. Patient stated that right now seems like her vomiting and diarrhea have stopped it. She denies any urinary symptoms such as dysuria or change in urinary frequency or urgency. Vital signs significant for mild tachypnea with rate of breathing in the mid to low 20s. Labs significant for leukocytosis with WBC 14.4. Serum lactic acid 2.8 with repeat 1.2. Procalcitonin level 0.83. Urine analysis suggesting the presence of urinary tract infections. Admission request is called for clinical sepsis with either urinary tract infections or gastroenteritis or both. 07/08: CT of the abdomen pelvis no sign of gastroenteritis. C. difficile PCR negative. Blood and urine culture no growth today. Serum Cr level 1.6-->0.6. Patient denies any more nausea or vomiting. She tolerates regular food fine. She is still having diarrhea but is starting to solidify it. Continue IV fluid and Rocephin for urinary tract infections. Imodium as needed loose stool. We will keep the patient in-house today. 07/09: Discharged home. Rx sent to pharmacy. 2 week PCP follow up appointment made for her. All questions were answered prior to patient being physically discharged. Discharge diagnosis: UTI, viral enterocolitis Time Spent with Patient Time attestation: Total time spent providing and/or coordinating discharge services: Time spent: Less than 30 minutes EXAM Constitutional Vitals: Temp Pulse Resp BP Pulse Ox O2 Del Method 36.7 C 73 18 148/73 99 Room Air 07/09/22 07:48 07/09/22 07:48 07/09/22 07:48 07/09/22 07:48 07/09/22 07:48 07/09/22 07:48 General appearance: cooperative and no acute distress Head Head exam: Present atraumatic and normocephalic Eye Eye exam: Present EOMI and PERRL ENT ENT exam: Present mucous membranes moist, normal exam and normal external ear exam Neck Neck exam: Present normal inspection; Absent lymphadenopathy, tenderness or thyromegaly Respiratory Respiratory exam: Absent accessory muscle use, respiratory distress or wheezes Cardiovascular Cardiovascular exam: Present normal rate and rhythm; Absent JVD GI/Abdominal GI/Abdominal exam: Present normal bowel sounds and soft; Absent organomegaly or tenderness Extremities Exam Extremities exam: Present full ROM, normal capillary refill and normal inspection; Absent tenderness Neurological Exam Neurological exam: Present alert, CN II-XII intact and oriented X3; Absent motor sensory deficit Psychiatric Psychiatric exam: Present normal affect and normal mood; Absent anxious or depressed Skin Skin exam: Present dry and intact Discharge Data Data Completed and Pending Labs on day of discharge: Labs from last 24 hours 07/09/22 07/09/22 05:40 05:40 WBC 6.7 RBC 3.90 Hgb 11.6 Hct 36.2 MCV 92.8 MCH 29.7 MCHC 32.0 RDW 13.2 Plt Count 210 MPV 9.6 Immature Gran % (Auto) 0.3 Neut % (Auto) 65.4 Lymph % (Auto) 23.4 Hunt % (Auto) 9.9 Eos % (Auto) 0.7 Baso % (Auto) 0.3 Lymph # (Auto) 1.56 Hunt # (Auto) 0.66 Eos # (Auto) 0.05 Baso # (Auto) 0.02 Immature Gran # 0.02 Absolute Neutrophils 4.37 Sodium 139 Potassium 3.4 Chloride 106 Carbon Dioxide 24 Anion Gap 9.0 BUN 9 Creatinine 0.6 GFR Calculation 86 Glucose 82 Calcium 8.6 Total Bilirubin 0.2 AST 40 H ALT 18 Alkaline Phosphatase 69 Total Protein 5.6 L Albumin 3.3 Globulin 2.3 Albumin/Globulin Ratio 1.4 Preliminary micro results at discharge 07/07/22 12:00 Blood Culture - Preliminary Blood 07/08/22 06:18 Blood Culture - Preliminary Blood Discharge Plan Patient/Caregiver Discharge Instructions Activity: increase activity as tolerated Diet: Regular Diet Prescriptions: New loperamide 2 mg Capsule 2 mg PO PRN PRN (Reason: Diarrhea) Qty: 20 1RF ondansetron 4 mg tablet,disintegrating 4 mg PO Q8H PRN (Reason: nausea and vomiting) Qty: 20 0RF Continued Calcium 600 mg PO BID multivitamin tablet 1 tab PO QDAY vitamin A-vit C-vit E-zinc-Cu tablet 2 tab PO BID metoprolol succinate 50 mg tablet extended release 24 hr 50 mg PO QDAY Qty: 365 0RF simvastatin 40 mg tablet 40 mg PO HS amlodipine 5 mg Tablet 5 mg PO DAILY lysine [L-Lysine] 500 mg Tablet 500 mg PO QDAY valsartan 160 mg PO DAILY hydrochlorothiazide 12.5 mg PO DAILY Follow Up Plan Follow up with: Sebastian Salguero MD [Primary Care Provider] - Patient Disposition: Home, Self-Care Rehab Potential: Good I certify that the patient requires SNF services: No Overall status at discharge: patient is back to baseline Discharge Orders: Discharge Order (Routine); Ordered 07/09/22 Ordered By: Liam SADLER VTE Deep Vein Thrombosis/Pulmonary Embolism Present on Admission: No
[2022-07-09] MEDS: COLD 0.9 % SODIUM CHLORIDE 1,000 ML IV SCH (14:32)
== END 2022-07-09 14:55 | disposition home or self-care (01) | DRG 872 ==
LOC: ED 10:13 → MEDSUR 15:35
PROVIDERS: ADMIT Internal Medicine; ATTEND Internal Medicine